=== PATIENT | male | born 1985 | race Caucasian/White ===

== ENCOUNTER 2024-01-12 08:57 | Emergency (ER) | payer OTHER, SELFPAY ==
[2024-01-12] VITALS (30 sets, daily range): BP systolic 125–164; BP diastolic 88–113; PULSE 51–89; RESP 8–20; TEMP 36.7; O2SAT 98–100
--- NOTE | ~2024-01-12 | XR_ITS ---
EXAMINATION: XR chest 2V DATE: 01/12/2024 09:21 INDICATION: Chest pressure TECHNIQUE: PA and lateral views of the chest are obtained. COMPARISON: None available FINDINGS: The lungs are free of acute opacities. No pleural effusion or pneumothorax. The cardiomedia stinal silhouette is normal. The visualized bones and soft tissues are unremarkable. IMPRESSION: 1. No acute cardiopulmonary abnormality. Reviewed, dictated and finalized at location B. R
--- NOTE | ~2024-01-12 | CT_ITS ---
EXAMINATION: CTA chest abdomen pelvis DATE: 01/12/2024 10:27 INDICATION: Severe chest and abdominal pain TECHNIQUE: Computed tomographic angiography (CTA) of the chest, abdomen, and pelvis was performed wit hout and with 100 mL Omnipque-350 intravenous contrast. Maximum intensity projection 3D-reconstructio ns of the aorta and other arteries were constructed by the technologist on a separate workstation. Th e dose-length product (DLP) was 1202.07 mGy-cm. Automated exposure control and iterative reconstructi on technique were employed. COMPARISON: None. FINDINGS: CHEST CTA: No aneurysm or dissection. The great vessels are unremarkable at their origins. Although not specific ally timed for evaluation of the pulmonary arteries, no pulmonary embolus is identified. There are pu lmonary nodules of the right middle and lower lobes. The largest measures 7 mm in the right lower lob e (image 83). There is mild bilateral hilar lymphadenopathy. ABDOMEN AND PELVIS CTA: No aneurysm or dissection of the abdominal aorta. The celiac axis, superior mesenteric artery, and in ferior mesenteric artery are normal at their origins. There are single renal arteries. The liver, spleen, pancreas, gallbladder, and adrenal glands are normal. The kidneys are unremarkable . No pathologically enlarged abdominal or pelvic lymph nodes are identified. No free intraperitoneal gas or evidence of bowel obstruction. The appendix is normal. IMPRESSION: 1. No aneurysm or dissection of the aorta. 2. Right lung nodules which may be infectious or inflammatory. Follow-up low-dose chest CT in three m [facility] is recommended. 3. Mild bilateral hilar lymphadenopathy which may be reactive versus malignant. Findings can be reeva luate at the time of follow-up chest CT. Reviewed, dictated and finalized at location B. IC PROFESSOR IMPRESSION: 1. No aneurysm or dissection of the aorta. 2. Right lung nodules which may be infectious or inflammatory. Follow-up low-do se chest CT in three months is recommended. 3. Mild bilateral hilar lymphadenopathy which may be reactive versus malignant. Findings can be reevaluate at the time of follow-up chest CT.
--- NOTE | 2024-01-12 09:00 | ECG_ITS ---
Measurements Intervals [place] Rate: 85 P: 60 NE: 135 QRS: 33 QRSD: 89 T: 45 QT: 356 QTc: 425 Interpretive Statements SINUS RHYTHM EARLY REPOLARIZATION NORMAL ELECTROCARDIOGRAM NO PREVIOUS ECG AVAILABLE FOR COMPARISON Electronically Signed On 01-12-2024 12:41:25 ARMATURE WINDER AUTOMOTIVE by Dominic Fuentes M.D.
[2024-01-12 09:13] LABS: Basophils Absolute Auto 0.1 K/mm3 (0.0-0.1); Basophils Percent Auto 0.4 % (0.2-1.2); Eosinophils Absolute Auto 0.3 K/mm3 (0-0.3); Eosinophils Percent Auto 1.5 % (0-4.4); Hematocrit 50.7 % (42.0-52.0); Hemoglobin 16.7 g/dL (14.0-18.0); Immature Granulocyte Absolute 0.09 K/mm3 (0.00-0.031); Immature Granulocyte Percent A 0.6 % (0-0.5); Lymphocytes Absolute Auto 1.69 K/mm3 (0.9-3.2); Lymphocytes Percent Auto 10.5 % (18.3-44.2); Mean Corpuscular HGB Conc 32.9 g/dl (32-36); Mean Corpuscular Hemoglobin 33.3 pg (26-34); Mean Corpuscular Volume 101.2 fl (80-100); Mean Platelet Volume 9.2 fl (7.4-10.4); Monocytes Absolute Auto 1.2 K/mm3 (0.1-0.6); Monocytes Percent Auto 7.6 % (2.6-8.5); Neutrophils Absolute Auto 12.8 K/mm3 (1.3-6.7); Neutrophils Percent Auto 79.4 % (45.5-73.1); Platelet Count Result 304 k/mm3 (150-375); Red Blood Count 5.01 M/mm3 (4.6-6.20); Red Cell Distribution Width 14.2 % (11.5-14.5); White Blood Count 16.2 K/mm3 (4.5-10.0)
[2024-01-12 09:24] LABS: Alanine Aminotransferase 29 U/L (6-50); Alkaline Phosphatase 81 U/L (38-126); Anion Gap 3 mmol/L (8-16); Aspartate Amino Transferase 30 U/L (17-59); Bilirubin,Total 0.4 mg/dL (0.2-1.3); Blood Urea Nitrogen 7 mg/dL (9-20); Calcium 9.3 mg/dL (8.4-10.2); Carbon Dioxide 28 mmol/L (22-30); Chloride 106 mmol/L (98-107); Estimated CRCL calculation 148 ml/min; Estimated Glomerular Filt Rate > 60; Glucose 129 mg/dL (65-110); Lipase 173 U/L (23-300); Potassium 4.1 mmol/L (3.4-5.0); Sodium 137 mmol/L (137-145)
[2024-01-12 09:25] LABS: INR 0.9
[2024-01-12 09:26] LABS: Partial Thromboplastin Time 28.4 SECONDS (22.3-36.8)
[2024-01-12] MEDS: ASPIRIN 81 MG CHEWABLE TABLET 324 MG PO (09:34)
[2024-01-12 09:35] LABS: Troponin I < 0.012 ng/mL (0.000-0.034)
--- NOTE | 2024-01-12 10:11 | ECG_ITS ---
Measurements Intervals [place] Rate: 81 P: 51 [place]: 132 QRS: 29 QRSD: 89 T: 55 QT: 373 QTc: 434 Interpretive Statements SINUS RHYTHM WITH SINUS ARRHYTHMIA EARLY REPOLARIZATION NORMAL ELECTROCARDIOGRAM COMPARED TO ECG 01/12/2024 09:06:32 SINUS ARRHYTHMIA NOW PRESENT Electronically Signed On 01-12-2024 12:42:13 PROJECT ESTIMATOR by Dominic Fuentes M.D.
--- NOTE | 2024-01-12 10:13 | ED.CHESTPAIN ---
HPI - Chest Pain General Chief Complaint: Chest Pain Stated Complaint: CHEST PRESSURE Time Seen by Provider: 01/12/24 09:10 History of Present Illness HPI narrative: Patient is a 38-year-old male presenting with chest pain. States that he was woken from sleep with severe substernal chest pressure. States that it feels like a heaviness. Associated with diaphoresis, lightheadedness, shortness of breath. States that the pain radiates into his back. Denies abdominal pain or nausea or vomiting. No leg swelling. States that he has a history of opiate use disorder, he has been clean from Percocets for 90 days. States that he has also been weaning himself off of liquor. He is down to a 12 pack of beer a day. Denies history of stimulant use. Related Data Allergies Allergy/AdvReac Type Severity Reaction Status Date / Time DIPHENHYDRAMINE HCL Allergy Mild Uncoded 10/27/10 20:04 Review of Systems Review of Systems: All systems reviewed & are unremarkable except as noted in HPI and below PMFSH Past Medical History Medical History No pertinent past medical history Social History Social History Smoking status: Current every day smoker Gender identity (if verbalized by the patient): Male Exam Narrative: GENERAL: Distress secondary to pain, intermittently tearful HEAD: Normocephalic, atraumatic. EYES: PERRLA and EOMI. ENT: Grossly unremarkable NECK: Supple. CHEST: Clear to auscultation. No respiratory distress. HEART: Regular rate and rhythm. Normal peripheral pulses. ABDOMEN: Soft, nontender, nondistended EXTREMITIES: Normal range of motion. No edema. SKIN: Warm, dry, no rash. NEURO: No focal deficits. Alert and oriented x3. PSYCH: Normal mood and affect. Course Vital Signs Vital signs: Vital Signs Temperature 98.0 F 01/12/24 09:02 Pulse Rate 89 01/12/24 09:02 Respiratory Rate 20 01/12/24 09:02 Blood Pressure 142/93 H 01/12/24 09:02 Pulse Oximetry 100 01/12/24 09:02 Oxygen Delivery Room Air 01/12/24 09:02 Temperature 98.0 F 01/12/24 09:02 Pulse Rate 61 01/12/24 14:13 Respiratory Rate 14 01/12/24 14:13 Blood Pressure 132/88 01/12/24 14:13 Pulse Oximetry 99 01/12/24 14:13 Oxygen Delivery Room Air 01/12/24 10:47 MDM - Chest Pain MDM Narrative Medical decision making narrative: 38-year-old male presenting with substernal chest pressure. Vitals are stable. Exam remarkable for the above. EKG per my interpretation shows normal sinus rhythm, somewhat peaked T-waves, minimal ST elevations in V4 through V6. Concern for aortic pathology so patient was urgently taken to CT scanner for angiography. CTA shows no evidence of aneurysm or dissection. No evidence of pulmonary embolus. Patient continues to complain of severe chest pain despite 2 doses of nitroglycerin and morphine. Repeat EKG per my interpretation shows sinus rhythm with slight ST elevations in lateral precordial leads. Spoke with cardiology who has reviewed the EKGs and feel it is consistent with early repolarization. Troponins are undetectable x2. Patient asking repeatedly to go home. He does not want any more pain medications. He states that his chest pain is now gone and he just has some upper abdominal pain. Patient does have a very long history of alcohol use disorder. Possibly esophagitis/gastritis. Will start him on Protonix and advised PCP and GI follow-up. Will also treat with azithromycin given the nodules on the CT scan concerning for infection and his elevated white count. Patient and his were agreeable with this plan. Appropriate return precautions given. Discharged in stable condition. Differential Diagnosis Differential diagnosis: Likely atypical chest pain, costochondritis and chest pain Medical Records Data Attestation: I reviewed the patient's medical records. Lab
[2024-01-12] MEDS: MORPHINE SULFATE (*CRX) 2 MG/ML INJ IV PUSH (10:17)
[2024-01-12] MEDS: NITROGLYCERIN SL 0.4 MG TABLET SUBLINGUAL (10:39)
--- NOTE | 2024-01-12 10:43 | PC.NURSE ---
Pt called out at approx 10:05 with suddenly worsened chest pain 10x worse than before that radiates to his back. MD and RN came to bedside. Repeat EKG completed and CTA ordered and now completed as well. Pt does not want much pain medication due to hx of opiate addiction. Pt receiving SL Nitro currently as well. Pt continues to have worsened pain. Remains in NSR on monitor. Waiting CT results.
--- NOTE | 2024-01-12 11:00 | ECG_ITS ---
Measurements Intervals [place] Rate: 62 P: 42 DC: 132 QRS: 16 QRSD: 106 T: 20 QT: 427 QTc: 434 Interpretive Statements SINUS RHYTHM WITH SINUS ARRHYTHMIA NORMAL ECG COMPARED TO ECG 01/12/2024 10:13:04 NO SIGNIFICANT CHANGES Electronically Signed On 01-13-2024 14:30:35 PURIFICATION OPERATOR HELPER by Richard Schroeder M.D.
[2024-01-12] MEDS: MORPHINE SULFATE (*CRX) 4 MG/ML INJ IV PUSH (11:03)
--- NOTE | 2024-01-12 11:10 | PC.NURSE ---
Attempted two doses of Nitroglycerin without any relief, BP was 120 systolic. Pt did not feel like Nitro was working at all and continued to have 10/10 pain. Pt requested one more dose of morphine. Pt given pain medication per MAR and waiting on cardiology consult per MD.
--- NOTE | 2024-01-12 11:54 | ECG_ITS ---
Measurements Intervals [place] Rate: 55 P: 41 DC: 131 QRS: 12 QRSD: 89 T: 26 QT: 444 QTc: 426 Interpretive Statements SINUS BRADYCARDIA NORMAL ECG COMPARED TO ECG 01/12/2024 11:00:49 SINUS BRADYCARDIA NOW PRESENT Electronically Signed On 01-13-2024 14:30:44 SADDLE AND SIDE WIRE STITCHER by Richard Schroeder M.D.
[2024-01-12] MEDS: BELLADONNA ALK/PHENOB ELIX 10 ML, MAG HYDROX/ALUMINUM HYD/SIMETH 30 ML, LIDOCAINE HCL 2... PO (12:16)
[2024-01-12] MEDS: SODIUM CHLORIDE 0.9% IV 1,000 ML 999 ML IV CONT (12:18)
[2024-01-12 12:25] LABS: Troponin I < 0.012 ng/mL (0.000-0.034)
--- NOTE | 2024-01-12 14:13 | PC.NURSE ---
RN noticed patient removed himself from the monitor, went to bedside and pt had also removed his own IV. RN applied gauze bandage and apologized for his length of stay. Pt is appreciative for his care, however reports he is wanting to leave at this time. MD notified and came to room to talk to pt (with RN). Plan established to discharge with prescriptions and follow up. Pt not wanting strong pain meds due to hx of addiction. Pt agreeable to plan and discharged by MD. Ambulatory at time of discharge with significant other.
== END 2024-01-12 14:13 | disposition home or self-care (01) ==
PROVIDERS: Emergency Provider Emergency Medicine
DX: R07.89 Other chest pain (principal); R91.8 Other nonspecific abnormal finding of lung field; F17.210 Nicotine dependence, cigarettes, uncomplicated; R00.1 Bradycardia, unspecified
CPT/HCPCS: 36415; 71046; 71275; 74174; 80053; 83690; 84484; 85025; 85610; 85730; 93005; 96361; 96374; 96376; 99284; A9270; J2270; J7030; Q9967